=== PATIENT | female | born 1950 | race Caucasian/White ===

== ENCOUNTER 2020-01-10 11:48 | Emergency (ER) | payer MEDICARE ==
[~2020-01-10] VITALS: Ht 147.3 cm; Wt 53.1 kg
--- NOTE | 2020-01-10 11:48 | NUR ---
BIB MEDICS FROM HOME FOR DIZZINESS. ALERT, CALM, NAD
--- NOTE | 2020-01-10 11:50 | NUR ---
#18 gauge angiocatheter placed to R forearm. Use of asceptic technique. Opsite placed over site. Blood return noted. Blood for lab drawn from site. Flushed with 10 mL of normal saline. No evidence of infiltration noted. Patient tolerated well.
[2020-01-10 12:05] VITALS: BP_SYST 144
--- NOTE | 2020-01-10 12:05 | NUR ---
Eva Pike, pt daughter, called in regards to pt. requested call for any update or need of info. c: [phone]
--- NOTE | 2020-01-10 12:15 | NUR ---
Call received from daughter Eva. She states she will call back in 1-2 hours for an update. Her callback number is [phone].
--- NOTE | 2020-01-10 12:15 | NUR ---
DR LEAL IN TO ASSESS
--- NOTE | 2020-01-10 12:16 | NUR ---
ALERT, CALM, NAUSEA W/DIZZINESS, COMMUNICATES CLEARLY IN FULL COMPLETE SENTENCES, NO DISTRESS. DENIES CP/SOB/FEVER/CHILLS. DENIES COVID-19 EXPOSURE
[2020-01-10 12:40] LABS: CALCIUM 8.6 mg/dL (8.4-11.0); CREATININE 0.63 mg/dL (0.55-1.30); POTASSIUM 3.4 mmol/L (3.5-5.1)
--- NOTE | 2020-01-10 12:41 | NUR ---
OFF TO CT HEAD AND CXR
[2020-01-10 12:49] LABS: BASOPHILS % (AUTO) 0.8 % (0.0-2.0); EOSINOPHILS # (AUTO) 0.2 K/uL (0.0-0.4); EOSINOPHILS % (AUTO) 3.5 % (0.0-4.0); HEMATOCRIT 37.6 % (36-48); HEMOGLOBIN 11.9 g/dL (12.0-16.0); LYMPHOCYTES # (AUTO) 1.9 K/uL (1.0-5.5); LYMPHOCYTES % (AUTO) 30.9 % (20.5-51.5); MEAN CORPUSCULAR HEMOGLOBIN 21 pg (27-31); MEAN CORPUSCULAR HGB CONC 32 % (32-36); MEAN CORPUSCULAR VOLUME 67 fL (79.0-98.0); MONOCYTES # (AUTO) 0.4 K/uL (0.0-1.0); MONOCYTES % (AUTO) 5.8 % (1.7-9.3); NEUTROPHILS # (AUTO) 3.7 K/uL (1.8-7.7); PLATELET COUNT (AUTO) 269 K/uL (130-430); RED BLOOD CELL COUNT(AUTO) 5.57 MIL/uL (4.2-6.2); RED CELL DISTRIBUTION WIDTH 16.4 % (9.0-15.0); WHITE BLOOD COUNT (AUTO) 6.2 K/uL (4.8-10.8)
[2020-01-10 12:52] LABS: INR 0.9 (0.8-1.2); PROTHROMBIN TIME 9.6 SECS (9.5-12.5)
[2020-01-10 12:55] LABS: TOTAL BILIRUBIN 0.6 mg/dL (0.0-1.0)
--- NOTE | 2020-01-10 13:28 | NUR ---
AMBULATED STEADY, DENIES CP/SOB
[2020-01-10 13:36] LABS: BILIRUBIN,URINE NEGATIVE (NEGATIVE); BLOOD, URINE 1+ (NEGATIVE); CLARITY/URINE CLEAR (CLEAR); COLOR,URINE YELLOW (YELLOW); GLUCOSE,URINE NEGATIVE (NEGATIVE); KETONES,URINE 1+ (NEGATIVE); LEUKOCYTE ESTERASE ,URINE NEGATIVE (NEGATIVE); NITRITE, URINE NEGATIVE (NEGATIVE); PROTEIN URINE NEGATIVE (NEGATIVE); UROBILINOGEN,URINE 0.2 (0.2-1.0)
[2020-01-10 13:42] VITALS: BP_SYST 102
[2020-01-10 13:48] LABS: BACTERIA,URINE None Seen /HPF (None Seen); WBC,URINE NONE SEEN /HPF (0-3)
--- NOTE | 2020-01-10 13:53 | NUR ---
Patient given written and verbal discharge instructions and verbalizes understanding. ER MD discussed with patient the results and treatment provided. Patient in stable condition. ID arm band removed. IV catheter removed intact and dressing applied, no active bleeding. Rx of MECLAZINE given. Patient educated on pain management and to follow up with PMD. Pain Scale 0/10 Opportunity for questions provided and answered. Medication side effect fact sheet provided.
== END 2020-01-10 13:53 | disposition home or self-care (01) ==
LOC: SED 11:48
DX: R42 Dizziness and giddiness (principal); E07.9 Disorder of thyroid, unspecified; Z88.0 Allergy status to penicillin
CPT/HCPCS: 36415; 70450-TC; 71045; 74018; 80053; 81000-TC; 83605; 83880; 84439; 84484; 85025; 85610-TC; 87040-TC; 93005; 99285